=== PATIENT | female | born 1975 | race Two or more races ===

== ENCOUNTER 2022-12-14 09:33 | Emergency (ER) | payer SELFPAY ==
[2022-12-14 09:39] VITALS: TEMP 98; BMI 32.8
[2022-12-14] MEDS ORDERED: SODIUM CHLORIDE 1,000 ML IV STA (10:19)
[2022-12-14 10:59] LABS: URINE APPEARANCE CLEAR; URINE BILIRUBIN NEGATIVE (NEGATIVE); URINE COLOR YELLOW; URINE GLUCOSE (UA) NEGATIVE (NEGATIVE); URINE KETONE NEGATIVE (NEGATIVE); URINE LEUK ESTERASE NEGATIVE (NEGATIVE); URINE NITRITE NEGATIVE (NEGATIVE); URINE PROTEIN NEGATIVE (NEGATIVE); URINE UROBILINOGEN 0.2 mg/dL (0.2-1.0)
[2022-12-14] MEDS ORDERED: FAMOTIDINE 20 MG TABLET PO ONE (11:10)
[2022-12-14 11:11] LABS: BASO % 0.6 % (0-2.0); EOS % 1.7 % (0-4.5); HEMATOCRIT 41.5 % (32.4-45.2); HEMOGLOBIN 14.7 GM/dL (10.7-15.3); LYMPH % 28.2 % (8-40); MCH 31.7 pg (25.7-33.7); MCHC 35.5 g/dl (32.0-36.0); MEAN CELL VOLUME 89.2 fl (80-96); MEAN PLT VOLUME 7.8 fl (7.5-11.1); MONO % 7.5 % (3.8-10.2); PLATELET COUNT 218 10^3/uL (134-434); RBC 4.65 M/mm3 (3.60-5.2); RDW 13.1 % (11.6-15.6); WHITE BLOOD COUNT 6.1 K/mm3 (4.0-10.0)
[2022-12-14] MEDS ORDERED: MAG HYDROX/AL HYDROX/SIMETH 30 ML UNIT-DOSE CUP PO ONE (11:11)
[2022-12-14] MEDS ORDERED: FAMOTIDINE 20 MG TABLET ONE (11:28)
[2022-12-14] MEDS ORDERED: MAG HYDROX/AL HYDROX/SIMETH 30 ML UNIT-DOSE CUP ONE (11:28)
[2022-12-14 11:32] LABS: POTASSIUM 4.2 mmol/L (3.5-5.1)
[2022-12-14 11:34] LABS: CALCIUM 8.9 mg/dL (8.5-10.1)
[2022-12-14 11:35] LABS: BLOOD UREA NITROGEN 11.2 mg/dL (7-18)
[2022-12-14 11:38] LABS: CREATININE 0.8 mg/dL (0.55-1.3)
[2022-12-14 11:39] LABS: TOT PROT 7.2 g/dl (6.4-8.2)
[2022-12-14 11:40] LABS: BILIRUBIN,TOTAL 1.9 mg/dL (0.2-1)
[2022-12-14 13:22] LABS: BILIRUBIN,DIRECT 0.4 mg/dL (0.0-0.2)
[2022-12-14 17:45] VITALS: BP 133/76; PULSE 87; RESP 19
== END 2022-12-14 17:43 | disposition home or self-care (01) ==
LOC: JER 09:33
PROC: 3E0337Z Introduction of Electrolytic and Water Balance Substance into Peripheral Vein, Percutaneous Approach (ICD-10-PCS; principal; 2022-12-14)
DX: R42 Dizziness and giddiness (principal); R07.89 Other chest pain; R53.1 Weakness; R14.0 Abdominal distension (gaseous)
CPT/HCPCS: 36415; 71046-TC-FY; 76705-TC; 80053; 81003; 82248; 83690; 83735; 84484; 84703; 85025; 87086; 93005; 93010; 99285-25

== ENCOUNTER 2023-04-20 16:40 | Emergency (ER) | payer OTHER ==
[2023-04-20 16:46] VITALS: BP 137/80; PULSE 75; RESP 18; TEMP 97.5; BMI 35.0
[2023-04-20] MEDS ORDERED: KETOROLAC TROMETHAMINE 30 MG/1 ML VIAL ONE (17:50)
[2023-04-20] MEDS: SODIUM CHLORIDE 0.9% 500 ML INFUS.BAG IV ONE (18:03)
[2023-04-20] MEDS: KETOROLAC TROMETHAMINE 30 MG/1 ML VIAL IVPUSH ONE (18:03)
[2023-04-20 18:21] LABS: BASO % 0.6 % (0-2.0); HEMATOCRIT 42.3 % (32.4-45.2); HEMOGLOBIN 14.6 GM/dL (10.7-15.3); LYMPH % 32.1 % (8-40); MCH 30.7 pg (25.7-33.7); MCHC 34.4 g/dl (32.0-36.0); MEAN CELL VOLUME 89.4 fl (80-96); MONO % 7.3 % (3.8-10.2); PLATELET COUNT 214 10^3/uL (134-434); RBC 4.74 M/mm3 (3.60-5.2); RDW 13.4 % (11.6-15.6); WHITE BLOOD COUNT 8.5 K/mm3 (4.0-10.0)
[2023-04-20 18:26] LABS: HCG,QUALITATIVE URINE Negative
[2023-04-20 18:32] LABS: EPI CELLS >36 /uL (0-25.1); HYALINE CASTS 0 /uL (0-3.1); URINE APPEARANCE CLEAR; URINE BACTERIA 1356 /uL (0-1359); URINE BILIRUBIN NEGATIVE (NEGATIVE); URINE COLOR YELLOW; URINE GLUCOSE (UA) NEGATIVE (NEGATIVE); URINE KETONE NEGATIVE (NEGATIVE); URINE LEUK ESTERASE TRACE (NEGATIVE); URINE NITRITE NEGATIVE (NEGATIVE); URINE PROTEIN NEGATIVE (NEGATIVE); URINE RBC 16 /uL (0-23.9); URINE WBC 36 /uL (0-25.8)
[2023-04-20 18:45] LABS: POTASSIUM 4.2 mmol/L (3.5-5.1)
[2023-04-20 18:46] LABS: CALCIUM 9.2 mg/dL (8.5-10.1)
[2023-04-20 18:47] LABS: BLOOD UREA NITROGEN 20.9 mg/dL (7-18)
[2023-04-20 18:50] LABS: CREATININE 0.9 mg/dL (0.55-1.3)
[2023-04-20 18:52] LABS: BILIRUBIN,TOTAL 1.1 mg/dL (0.2-1); TOT PROT 7.3 g/dl (6.4-8.2)
== END 2023-04-20 20:04 | disposition home or self-care (01) ==
LOC: JER 16:40
PROC: 3E0333Z Introduction of Anti-inflammatory into Peripheral Vein, Percutaneous Approach (ICD-10-PCS; principal; 2023-04-20)
DX: M54.50 Low back pain, unspecified (principal); N30.00 Acute cystitis without hematuria
CPT/HCPCS: 36415; 74176-TC; 80053; 81003; 84703; 85025; 87086; 99284-25

== ENCOUNTER 2023-04-25 16:43 | Emergency (ER) | payer OTHER ==
[2023-04-25 17:25] VITALS: BP 111/66; PULSE 72; RESP 18; TEMP 98.3; BMI 35.0
[2023-04-25 18:15] LABS: URINE APPEARANCE CLEAR; URINE BILIRUBIN NEGATIVE (NEGATIVE); URINE COLOR YELLOW; URINE GLUCOSE (UA) NEGATIVE (NEGATIVE); URINE KETONE NEGATIVE (NEGATIVE); URINE LEUK ESTERASE NEGATIVE (NEGATIVE); URINE NITRITE NEGATIVE (NEGATIVE); URINE PROTEIN NEGATIVE (NEGATIVE)
[2023-04-25] MEDS ORDERED: DEXAMETHASONE SOD PHOSPHATE 10 MG/1 ML VIAL ONE (18:48)
[2023-04-25] MEDS ORDERED: KETOROLAC TROMETHAMINE 30 MG/1 ML VIAL ONE (18:48)
[2023-04-25] MEDS: DEXAMETHASONE SOD PHOSPHATE 10 MG/1 ML VIAL IM ONE (19:00)
[2023-04-25] MEDS: KETOROLAC TROMETHAMINE 30 MG/1 ML VIAL IM ONE (19:00)
== END 2023-04-25 19:37 | disposition home or self-care (01) ==
LOC: JER 16:43 → JERFT 16:43
PROC: 3E0233Z Introduction of Anti-inflammatory into Muscle, Percutaneous Approach (ICD-10-PCS; principal; 2023-04-25)
PROC: 3E023GC Introduction of Other Therapeutic Substance into Muscle, Percutaneous Approach (ICD-10-PCS; 2023-04-25)
DX: M54.50 Low back pain, unspecified (principal)
CPT/HCPCS: 81003; 87086; 99284-25; J1100

== ENCOUNTER 2023-05-31 00:01 | Emergency (ER) | payer OTHER ==
[2023-05-31 00:15] VITALS: BP 136/78; PULSE 84; RESP 14; TEMP 97.6; BMI 34.5
[2023-05-31 00:40] LABS: PH,URINE 7.5 (5.0-8.0); URINE APPEARANCE CLEAR; URINE BILIRUBIN NEGATIVE (NEGATIVE); URINE COLOR YELLOW; URINE GLUCOSE (UA) NEGATIVE (NEGATIVE); URINE KETONE NEGATIVE (NEGATIVE); URINE LEUK ESTERASE NEGATIVE (NEGATIVE); URINE NITRITE NEGATIVE (NEGATIVE); URINE PROTEIN NEGATIVE (NEGATIVE); URINE UROBILINOGEN 0.2 mg/dL (0.2-1.0)
[2023-05-31 00:43] LABS: HCG,QUALITATIVE URINE Negative
[2023-05-31] MEDS ORDERED: DEXAMETHASONE SOD PHOSPHATE 10 MG/1 ML VIAL ONE (01:04)
[2023-05-31] MEDS ORDERED: KETOROLAC TROMETHAMINE 30 MG/1 ML VIAL ONE (01:04)
[2023-05-31] MEDS: KETOROLAC TROMETHAMINE 30 MG/1 ML VIAL IM ONE (01:15)
[2023-05-31] MEDS: DEXAMETHASONE SOD PHOSPHATE 4 MG/1 ML VIAL IM ONE (01:15)
[2023-05-31 01:26] LABS: BASO % 0.6 % (0-2.0); EOS % 1.6 % (0-4.5); HEMATOCRIT 42.7 % (32.4-45.2); HEMOGLOBIN 14.9 GM/dL (10.7-15.3); LYMPH % 25.7 % (8-40); MCH 31.4 pg (25.7-33.7); MCHC 34.9 g/dl (32.0-36.0); MEAN PLT VOLUME 7.8 fl (7.5-11.1); MONO % 8.5 % (3.8-10.2); NEUT % 63.6 % (42.8-82.8); PLATELET COUNT 216 10^3/uL (134-434); RBC 4.75 M/mm3 (3.60-5.2); RDW 13.6 % (11.6-15.6); WHITE BLOOD COUNT 9.7 K/mm3 (4.0-10.0)
[2023-05-31 01:54] LABS: POTASSIUM 4.4 mmol/L (3.5-5.1)
[2023-05-31 01:56] LABS: BLOOD UREA NITROGEN 14.8 mg/dL (7-18); CALCIUM 9.2 mg/dL (8.5-10.1)
[2023-05-31 01:57] LABS: ALBUMIN 3.8 g/dl (3.4-5.0)
[2023-05-31 02:00] LABS: CREATININE 0.7 mg/dL (0.55-1.3)
[2023-05-31 02:01] LABS: BILIRUBIN,TOTAL 0.9 mg/dL (0.2-1)
== END 2023-05-31 03:12 | disposition home or self-care (01) ==
LOC: JER 00:01
PROC: 3E023GC Introduction of Other Therapeutic Substance into Muscle, Percutaneous Approach (ICD-10-PCS; principal; 2023-05-31)
PROC: 3E0233Z Introduction of Anti-inflammatory into Muscle, Percutaneous Approach (ICD-10-PCS; 2023-05-31)
DX: M54.50 Low back pain, unspecified (principal); G89.29 Other chronic pain; R35.0 Frequency of micturition; R94.6 Abnormal results of thyroid function studies
CPT/HCPCS: 36415; 80053; 81003; 83735; 84439; 84443; 84703; 85025; 87086; 99284-25

== ENCOUNTER 2023-06-23 21:16 | Emergency (ER) | payer OTHER ==
[2023-06-23 21:21] VITALS: BP 136/80; PULSE 76; RESP 18; TEMP 97.7; BMI 35.4
[2023-06-23] MEDS ORDERED: METOCLOPRAMIDE HCL INJECTION 10 MG/2 ML VIAL ONE (21:57)
[2023-06-23] MEDS: METOCLOPRAMIDE HCL INJECTION 10 MG/2 ML VIAL IVPB ONE (22:01)
[2023-06-23] MEDS: SODIUM CHLORIDE 0.9% 500 ML INFUS.BAG IV ONE (22:01)
[2023-06-23 22:05] LABS: BASO % 0.9 % (0-2.0); EOS % 4.1 % (0-4.5); HEMATOCRIT 41.8 % (32.4-45.2); LYMPH % 43.1 % (8-40); MCH 30.6 pg (25.7-33.7); MCHC 33.5 g/dl (32.0-36.0); MEAN CELL VOLUME 91.1 fl (80-96); MEAN PLT VOLUME 7.7 fl (7.5-11.1); MONO % 11.8 % (3.8-10.2); NEUT % 40.1 % (42.8-82.8); PLATELET COUNT 178 10^3/uL (134-434); RBC 4.59 M/mm3 (3.60-5.2); WHITE BLOOD COUNT 4.8 K/mm3 (4.0-10.0)
[2023-06-23 22:21] LABS: POTASSIUM 4.4 mmol/L (3.5-5.1)
[2023-06-23 22:23] LABS: CALCIUM 8.5 mg/dL (8.5-10.1)
[2023-06-23 22:24] LABS: ALBUMIN 3.4 g/dl (3.4-5.0); BLOOD UREA NITROGEN 12.1 mg/dL (7-18); MAGNESIUM 2.1 mg/dL (1.8-2.4)
[2023-06-23 22:27] LABS: CREATININE 0.9 mg/dL (0.55-1.3)
[2023-06-23 22:28] LABS: BILIRUBIN,TOTAL 0.8 mg/dL (0.2-1)
[2023-06-23 22:29] LABS: TOT PROT 6.3 g/dl (6.4-8.2)
== END 2023-06-23 23:57 | disposition home or self-care (01) ==
LOC: JER 21:16
PROC: 3E033GC Introduction of Other Therapeutic Substance into Peripheral Vein, Percutaneous Approach (ICD-10-PCS; principal; 2023-06-23)
DX: R51.9 Headache, unspecified (principal); R05.9 Cough, unspecified; R09.81 Nasal congestion; J10.1 Influenza due to other identified influenza virus with other respiratory manifestations; Z20.822 Contact with and (suspected) exposure to COVID-19
CPT/HCPCS: 0241U-QW; 36415; 80053; 83735; 84703; 85025; 99284-25

== ENCOUNTER 2023-08-12 13:39 | Emergency (ER) | payer OTHER ==
[2023-08-12 13:47] VITALS: BMI 34.3
[2023-08-12] MEDS ORDERED: ACETAMINOPHEN 500 MG TABLET (FP) ONE (14:39)
[2023-08-12] MEDS ORDERED: IBUPROFEN 400 MG TABLET (FP) PO ONE (14:39)
[2023-08-12] MEDS: IBUPROFEN 400 MG TABLET (FP) PO ONE (14:45)
[2023-08-12] MEDS: ACETAMINOPHEN 500 MG TABLET (FP) PO ONE (14:45)
[2023-08-12 14:50] LABS: EPI CELLS >36 /uL (0-25.1); HYALINE CASTS 0 /uL (0-3.1); PH,URINE 5.5 (5.0-8.0); URINE APPEARANCE CLEAR; URINE BACTERIA 262 /uL (0-1359); URINE BILIRUBIN NEGATIVE (NEGATIVE); URINE COLOR YELLOW; URINE GLUCOSE (UA) NEGATIVE (NEGATIVE); URINE KETONE NEGATIVE (NEGATIVE); URINE LEUK ESTERASE TRACE (NEGATIVE); URINE NITRITE NEGATIVE (NEGATIVE); URINE PROTEIN NEGATIVE (NEGATIVE); URINE RBC 21 /uL (0-23.9); URINE WBC 26 /uL (0-25.8)
[2023-08-12 16:26] LABS: HCG,QUALITATIVE URINE Negative
[2023-08-12] MEDS ORDERED: KETOROLAC TROMETHAMINE 15 MG/ML VIAL ONE (16:40)
[2023-08-12 16:48] VITALS: BP 122/86; PULSE 65; RESP 20; TEMP 98
[2023-08-12] MEDS: KETOROLAC TROMETHAMINE 30 MG/1 ML VIAL IM ONE (16:50)
== END 2023-08-12 17:38 | disposition home or self-care (01) ==
LOC: JER 13:39
PROC: 3E0233Z Introduction of Anti-inflammatory into Muscle, Percutaneous Approach (ICD-10-PCS; principal; 2023-08-12)
DX: M54.6 Pain in thoracic spine (principal); G89.29 Other chronic pain; R10.9 Unspecified abdominal pain
CPT/HCPCS: 81003; 84703; 99284-25

== ENCOUNTER 2023-09-14 09:31 | Emergency (ER) | payer OTHER ==
[2023-09-14 09:42] VITALS: BP 135/80; PULSE 70; RESP 16; TEMP 97.9; BMI 34.5
[2023-09-14] MEDS ORDERED: METOCLOPRAMIDE HCL INJECTION 10 MG/2 ML VIAL ONE (10:21)
[2023-09-14] MEDS ORDERED: KETOROLAC TROMETHAMINE 30 MG/1 ML VIAL ONE (10:21)
[2023-09-14] MEDS: KETOROLAC TROMETHAMINE 30 MG/1 ML VIAL IVPUSH ONE (10:39)
[2023-09-14] MEDS: SODIUM CHLORIDE 0.9% 1000 ML INFUS.BAG IV ONE (10:39)
[2023-09-14] MEDS: METOCLOPRAMIDE HCL INJECTION 10 MG/2 ML VIAL IVPB ONE (10:39)
== END 2023-09-14 11:52 | disposition home or self-care (01) ==
LOC: JER 09:31
PROC: 3E0333Z Introduction of Anti-inflammatory into Peripheral Vein, Percutaneous Approach (ICD-10-PCS; principal; 2023-09-14)
PROC: 3E033GC Introduction of Other Therapeutic Substance into Peripheral Vein, Percutaneous Approach (ICD-10-PCS; 2023-09-14)
DX: G43.909 Migraine, unspecified, not intractable, without status migrainosus (principal); R11.2 Nausea with vomiting, unspecified
CPT/HCPCS: 99284-25

== ENCOUNTER 2023-10-04 11:11 | Emergency (ER) | payer OTHER ==
[2023-10-04 11:18] VITALS: BP 151/97; PULSE 72; RESP 16; TEMP 97.9; BMI 35.4
[2023-10-04 12:53] LABS: PH,URINE 5.5 (5.0-8.0); URINE APPEARANCE CLEAR; URINE BILIRUBIN NEGATIVE (NEGATIVE); URINE COLOR YELLOW; URINE GLUCOSE (UA) NEGATIVE (NEGATIVE); URINE KETONE NEGATIVE (NEGATIVE); URINE LEUK ESTERASE NEGATIVE (NEGATIVE); URINE NITRITE NEGATIVE (NEGATIVE); URINE PROTEIN NEGATIVE (NEGATIVE); URINE UROBILINOGEN 0.2 mg/dL (0.2-1.0)
[2023-10-04] MEDS ORDERED: KETOROLAC TROMETHAMINE 15 MG/ML VIAL ONE (13:22)
[2023-10-04] MEDS: SODIUM CHLORIDE 1,000 ML IV STA (13:34)
[2023-10-04] MEDS: KETOROLAC TROMETHAMINE 15 MG/ML VIAL IVPUSH ONE (13:34)
[2023-10-04 13:41] LABS: BASO % 0.6 % (0-2.0); HEMATOCRIT 43.4 % (32.4-45.2); HEMOGLOBIN 14.9 GM/dL (10.7-15.3); LYMPH % 22.5 % (8-40); MCH 30.5 pg (25.7-33.7); MCHC 34.4 g/dl (32.0-36.0); MEAN CELL VOLUME 88.8 fl (80-96); MEAN PLT VOLUME 7.8 fl (7.5-11.1); MONO % 6.8 % (3.8-10.2); NEUT % 69.1 % (42.8-82.8); PLATELET COUNT 223 10^3/uL (134-434); RBC 4.89 M/mm3 (3.60-5.2); RDW 13.6 % (11.6-15.6); WHITE BLOOD COUNT 7.5 K/mm3 (4.0-10.0)
[2023-10-04 14:03] LABS: POTASSIUM 4.5 mmol/L (3.5-5.1)
[2023-10-04 14:08] LABS: CALCIUM 9.7 mg/dL (8.5-10.1)
[2023-10-04 14:09] LABS: BLOOD UREA NITROGEN 10.2 mg/dL (7-18)
[2023-10-04 14:12] LABS: TOT PROT 7.1 g/dl (6.4-8.2)
[2023-10-04 14:13] LABS: BILIRUBIN,TOTAL 1.5 mg/dL (0.2-1)
[2023-10-04 14:22] LABS: CREATININE 0.7 mg/dL (0.55-1.3)
== END 2023-10-04 15:16 | disposition home or self-care (01) ==
LOC: JER 11:11
PROC: 3E0333Z Introduction of Anti-inflammatory into Peripheral Vein, Percutaneous Approach (ICD-10-PCS; principal; 2023-10-04)
PROC: 3E0337Z Introduction of Electrolytic and Water Balance Substance into Peripheral Vein, Percutaneous Approach (ICD-10-PCS; 2023-10-04)
DX: R42 Dizziness and giddiness (principal); R11.2 Nausea with vomiting, unspecified; M54.50 Low back pain, unspecified
CPT/HCPCS: 36415; 80053; 81003; 82010; 82962; 83036; 84439; 84443; 85025; 87086; 99284-25

== ENCOUNTER 2023-10-07 09:22 | Emergency (ER) | payer OTHER ==
[2023-10-07 09:35] VITALS: BP 127/77; PULSE 67; RESP 16; TEMP 98; BMI 35.4
[2023-10-07] MEDS: SODIUM CHLORIDE 0.9% 500 ML INFUS.BAG IV ONE (10:29)
[2023-10-07 11:01] LABS: BASO % 0.6 % (0-2.0); HEMOGLOBIN 14.5 GM/dL (10.7-15.3); LYMPH % 22.8 % (8-40); MCH 30.8 pg (25.7-33.7); MCHC 34.6 g/dl (32.0-36.0); MEAN CELL VOLUME 89.1 fl (80-96); MEAN PLT VOLUME 7.9 fl (7.5-11.1); MONO % 7.3 % (3.8-10.2); NEUT % 68.3 % (42.8-82.8); PLATELET COUNT 194 10^3/uL (134-434); RBC 4.72 M/mm3 (3.60-5.2); RDW 13.4 % (11.6-15.6); URINE APPEARANCE CLEAR; URINE BILIRUBIN NEGATIVE (NEGATIVE); URINE COLOR YELLOW; URINE GLUCOSE (UA) NEGATIVE (NEGATIVE); URINE KETONE NEGATIVE (NEGATIVE); URINE LEUK ESTERASE NEGATIVE (NEGATIVE); URINE NITRITE NEGATIVE (NEGATIVE); URINE PROTEIN NEGATIVE (NEGATIVE); URINE UROBILINOGEN 0.2 mg/dL (0.2-1.0)
[2023-10-07 11:18] LABS: POTASSIUM 4.6 mmol/L (3.5-5.1)
[2023-10-07 11:21] LABS: BLOOD UREA NITROGEN 12.9 mg/dL (7-18); CALCIUM 9.3 mg/dL (8.5-10.1)
[2023-10-07 11:24] LABS: CREATININE 0.7 mg/dL (0.55-1.3)
[2023-10-07 11:25] LABS: BILIRUBIN,TOTAL 1.3 mg/dL (0.2-1)
== END 2023-10-07 13:27 | disposition home or self-care (01) ==
LOC: JER 09:22
DX: R10.31 Right lower quadrant pain (principal); R53.1 Weakness; E86.0 Dehydration; R35.0 Frequency of micturition; L29.2 Pruritus vulvae; M54.50 Low back pain, unspecified
CPT/HCPCS: 36415; 80053; 81003; 83690; 85025; 99283-25

== ENCOUNTER 2023-10-13 12:13 | Emergency (ER) | payer OTHER ==
[2023-10-13 12:20] VITALS: BP 124/79; PULSE 78; RESP 16; TEMP 98.7; BMI 35.4
[2023-10-13] MEDS ORDERED: METOCLOPRAMIDE HCL INJECTION 10 MG/2 ML VIAL ONE (12:53)
[2023-10-13] MEDS ORDERED: KETOROLAC TROMETHAMINE 30 MG/1 ML VIAL ONE (12:53)
[2023-10-13] MEDS ORDERED: ACETAMINOPHEN INJECTION 100 ML IVPB ONE (12:53)
[2023-10-13] MEDS: ACETAMINOPHEN 1000 MG/100 ML BAG IVPB ONE (13:18)
[2023-10-13] MEDS: SODIUM CHLORIDE 0.9% 500 ML INFUS.BAG IV ONE (13:18)
[2023-10-13] MEDS: METOCLOPRAMIDE HCL INJECTION 10 MG/2 ML VIAL IVPUSH ONE (13:20)
[2023-10-13] MEDS: KETOROLAC TROMETHAMINE 30 MG/1 ML VIAL IVPUSH ONE (13:20)
== END 2023-10-13 14:13 | disposition home or self-care (01) ==
LOC: JER 12:13
PROC: 3E033NZ Introduction of Analgesics, Hypnotics, Sedatives into Peripheral Vein, Percutaneous Approach (ICD-10-PCS; principal; 2023-10-13)
PROC: 3E0333Z Introduction of Anti-inflammatory into Peripheral Vein, Percutaneous Approach (ICD-10-PCS; 2023-10-13)
PROC: 3E033GC Introduction of Other Therapeutic Substance into Peripheral Vein, Percutaneous Approach (ICD-10-PCS; 2023-10-13)
DX: G43.909 Migraine, unspecified, not intractable, without status migrainosus (principal)
CPT/HCPCS: 99284-25; J0131

== ENCOUNTER 2023-11-05 18:05 | Emergency (ER) | payer OTHER ==
[2023-11-05 18:11] VITALS: BP 144/85; PULSE 76; TEMP 98; BMI 35.4
[2023-11-05] MEDS ORDERED: METOCLOPRAMIDE HCL INJECTION 10 MG/2 ML VIAL ONE (18:51)
[2023-11-05] MEDS ORDERED: ACETAMINOPHEN INJECTION 100 ML ONE (18:51)
[2023-11-05] MEDS: ACETAMINOPHEN 1000 MG/100 ML BAG IVPB ONE (19:06)
[2023-11-05] MEDS: SODIUM CHLORIDE 0.9% 500 ML INFUS.BAG IV ONE (19:06)
[2023-11-05] MEDS: METOCLOPRAMIDE HCL INJECTION 10 MG/2 ML VIAL IVPUSH ONE (19:07)
== END 2023-11-05 20:16 | disposition home or self-care (01) ==
LOC: JER 18:05
PROC: 3E033NZ Introduction of Analgesics, Hypnotics, Sedatives into Peripheral Vein, Percutaneous Approach (ICD-10-PCS; principal; 2023-11-05)
PROC: 3E033GC Introduction of Other Therapeutic Substance into Peripheral Vein, Percutaneous Approach (ICD-10-PCS; 2023-11-05)
PROC: 3E033GC Introduction of Other Therapeutic Substance into Peripheral Vein, Percutaneous Approach (ICD-10-PCS; 2023-11-05)
DX: G43.909 Migraine, unspecified, not intractable, without status migrainosus (principal)
CPT/HCPCS: 99284-25; J0131